=== PATIENT | female | born 1990 | race Caucasian/White ===

== ENCOUNTER → 2020-08-05 04:53 | Outpatient (CLI) | payer OTHER, SELFPAY ==
[2020-08-05 19:22] LABS: SARS-CoV-2 RNA PCR Negative
== END ==
PROVIDERS: Visit Provider Obstetrics & Gynecology
DX: Z01.812 Encounter for preprocedural laboratory examination (principal); Z20.822 Contact with and (suspected) exposure to COVID-19
CPT/HCPCS: C9803; U0003; U0005

== ENCOUNTER 2020-08-08 00:43 | Day surgery (SDC) | payer OTHER, SELFPAY ==
[2020-07-27 08:59] VITALS: BMI 27.2
[2020-08-08] VITALS (8 sets, daily range): BP systolic 114–157; BP diastolic 78–99; PULSE 48–93; RESP 10–16; TEMP 36.6–37; O2SAT 98–100
--- NOTE | 2020-08-08 08:36 | PM.IMHP ---
H&P: HPI History of Present Illness Date/Time: 08/08/20 08:36 30 y/o coming in for sterilization Chief Complaint: Desires sterilization Review of Systems Review of Systems: All systems reviewed & are unremarkable except as noted in HPI and below PMFSH Past Medical History Medical History Vaginal delivery x4 Family History Family History Mother Tuberculosis Social History Social History (Updated 07/01/20 @ 11:15 by Jana Hernandez CMA) Smoking status: Never smoker Alcohol intake: never Substance use: never Living arrangements: with family Meds Home Medications and Allergies Home Medications Medication Instructions Recorded Confirmed Type ibuprofen 200 mg tablet 200 mg PO Q6H PRN 07/01/20 History multivitamin 1 tablet PO DAILY 07/01/20 History norethindrone (contraceptive) 0.35 0.35 mg PO DAILY 07/01/20 History mg tablet Allergies Allergy/AdvReac Type Severity Reaction Status Date / Time No Known Allergies Allergy Verified 07/01/20 11:04 Exam Const: General: healthy appearing, no acute distress, well developed, alert and awake Resp: Auscultation: clear to auscultation bilaterally Cardio: Rate: regular rate Rhythm: regular rhythm GI: Inspection: non-distended GI Palp: Yes Soft to palpation and No Tenderness to palpation present (GI) : Bimanual exam- vagina & uterus: normal bimanual exam, uterine size normal, uterine mobility normal, non-tender and soft Bimanual Exam- Adnexa, other: normal adnexae, no masses and No adnexal tenderness Extrem: General: no pedal edema and no calf tenderness Psych: Mental Status: mental status grossly normal Assessment and Plan Assessment and plan (1) Encounter for sterilization: Code(s): Z30.2 - Encounter for sterilization Status: Acute Assessment and Plan: She signed consent after risks, benefits, complications, and alternatives discussed for L/S BTL with Armand lennon. She expressed understanding and wishes to proceed.
[2020-08-08] MEDS: ACETAMINOPHEN 500 MG TABLET 1000 MG PO (10:18)
[2020-08-08] MEDS: LACTATED RINGERS 1,000 ML 30 ML IV CONT ×2 (10:24→13:02)
[2020-08-08] MEDS: KETOROLAC 15 MG/ML VIAL (*BKC) IV PUSH (10:24)
--- NOTE | 2020-08-08 11:12 | WPDANESEPPF ---
Anes - Initial Pre Proc Eval Procedure: Operation Date: 08/08/20 12:00 Proposed Procedures p Laparoscopic Bilateral Tubal Sterilization With Filshie Clips - Margaret Patel MD Date/Time: 08/08/20 11:12 Surgeon: Margaret Patel MD Pre Op Diagnosis: Desires Sterilization Patient Data Age: 30 Gender: F Height: 5 ft 4 in Weight: 70.85 kg Last Vital Signs Temp 37.0 C 08/08/20 09:55 Pulse 93 08/08/20 09:55 Resp 16 08/08/20 09:55 BP 114/85 08/08/20 09:55 Pulse Ox 100 08/08/20 09:55 Allergies Allergy/AdvReac Type Severity Reaction Status Date / Time No Known Allergies Allergy Verified 08/08/20 10:15 Home Medications Medication Instructions Recorded Confirmed Type ibuprofen 200 mg tablet 200 mg PO Q6H PRN 07/01/20 08/08/20 History multivitamin 1 tablet PO DAILY 07/01/20 08/08/20 History norethindrone (contraceptive) 0.35 0.35 mg PO DAILY 07/01/20 08/08/20 History mg tablet Patient hx anesthesia problems: none Family hx anesthesia problems: none PMFSH Past Medical History Medical History Eczema Overweight (BMI 25.0-29.9) Vaginal delivery x4 Family History Family History Mother Tuberculosis Social History Social History Smoking status: Never smoker Alcohol intake: never Substance use: never Living arrangements: with family Anes - Eval Final PreProcedure Day of Procedure 08/08/20 11:12 Patient weight: overweight Heart: regular rate and rhythm Lungs: clear to auscultation Airway: Mallampati scale class II Neurological: alert and oriented Last oral intake: >/= 8 hours ASA classification: II Emergent: no Anesthetic plan: proceed Anesthesia type and monitoring: general ETT and standard monitoring Informed Consent: The patient's anesthetic plan and its attendant risks and benefits were discussed with the patient/family/POA. Questions were solicited and answers provided to the satisfaction of the patient/family/POA.
--- NOTE | 2020-08-08 11:54 | WPDHPUPDATE1 ---
History and Physical Update Update Date/Time: 08/08/20 11:54 History and Physical has been reviewed, including an updated exam of the patient. There are NO changes in the patient's condition. Risks, benefits, and alternatives have been discussed and questions answered. Patient agrees to proceed with procedure.
[2020-08-08] MEDS: BUPIVACAINE/EPINEPHRINE 0.5% 30 ML VIAL 10 ML INFILTRATE (12:00)
[2020-08-08] MEDS: KETOROLAC 30 MG/ML VIAL (*BKC) IV PUSH (12:00)
--- NOTE | 2020-08-08 12:43 | P.OP_ITS ---
Procedure Note - Detailed Date of procedure: 08/08/20 Pre-op diagnosis: Desires Sterilization Post-op diagnosis: same Procedure performed: L/S BTL with Filshie clips Description of procedure: She was taken to the operating room where general a nesthesia was obtained. She was prepared and draped in the normal sterile fashion in the dorsal lithotomy position. Marcaine was injected infraumbilically. A 5 mm skin incision was made in the infraumbilical fold with a scalpel. A 5 mm non bladed trocar was placed with the camera in the trocar under direct visualization into the peritoneal cavity. Insufflation was begun. She was placed in Trendelenburg. Marcaine was then injected in the midline suprapubic area. An 8 mm skin incision was made in the suprapubic area. An 8 mm trocar was then placed suprapubically under direct visualization. Inspection of the pelvis revealed the findings as noted above. A Filshie clip was placed on the mid isthmic portion of the left fallopian tube, making sure the entire circumference of the tube was contained in the clip. The same procedure was performed on the right fallopian tube. All operative sites were inspected and found to be hemostatic. The pneumoperitoneum was allowed to escape. Both trocars were removed. There was a small bleeding point subcutaneously at the infraumbilical incision. This was easily controlled using cautery. Both skin incisions were then closed using 4 0 Monocryl in subcuticular fashion. She tolerated the procedure well. Sponge, lap, needle, and instrument counts were correct x2. She was taken to the recovery room in stable condition. Anesthesia: GETA Surgeon: Margaret Patel MD Estimated blood loss (mL): 10 Drains: No Packing: No Pathology: none sent Complications: No immediate complications Condition: stable Disposition: PACU Findings: Normal uterus, tubes, ovaries, liver, gall bladder, appendix
[2020-08-08] MEDS: fentaNYL CITRATE INJ (*CRX) 100 MCG/2 ML VIAL 25 MCG IV PUSH ×3 (13:06→13:30)
[2020-08-08] MEDS: oxyCODONE HCL (*CRX) 5 MG TAB IR PO (14:02)
[2020-08-08] MEDS: ONDANSETRON INJ 4 MG/2 ML VIAL IV PUSH (14:02)
== END 2020-08-08 14:56 | disposition home or self-care (01) ==
PROVIDERS: Visit Provider Obstetrics & Gynecology
PROC: (CPT 58671; principal; 2020-08-08 12:00)
DX: Z30.2 Encounter for sterilization (principal)
CPT/HCPCS: 58671; A9270; J0330; J1100; J1885; J2250; J2405; J2704; J3010; J7120

== ENCOUNTER 2021-04-10 09:28 | Emergency (ER) | payer OTHER, SELFPAY ==
[2021-04-10] VITALS (13 sets, daily range): BP systolic 100–143; BP diastolic 67–96; PULSE 62–86; RESP 13–18; TEMP 36.9; O2SAT 98–100
--- NOTE | ~2021-04-10 | XR_ITS ---
EXAMINATION: XR chest 2V DATE: 04/10/2021 14:01 INDICATION: Dizziness and vomiting TECHNIQUE: Frontal and lateral views of the chest are obtained COMPARISON: None available FINDINGS: The lungs are free of acute opacities. There is no pleural effusion or pneumothorax. The ca rdiomediastinal silhouette is normal. The visualized bones and soft tissues are unremarkable. IMPRESSION: 1. No acute cardiopulmonary abnormality. Reviewed, dictated and finalized at location A. [facility]
--- NOTE | 2021-04-10 13:42 | ECG_ITS ---
Measurements Intervals [place] Rate: 82 P: 37 WA: 155 QRS: 3 QRSD: 89 T: 5 QT: 381 QTc: 446 Interpretive Statements SINUS RHYTHM EARLY PRECORDIAL R/S TRANSITION VOLTAGE CRITERIA FOR LVH BORDERLINE T WAVE ABNORMALITY- INFERIOR LEADS BORDERLINE ECG Electronically Signed On 04-10-2021 15:04:13 [employer] by Henry Gomes D.O.
--- NOTE | 2021-04-10 14:07 | ED.DIZZY ---
HPI - Dizziness General Chief Complaint: Abdominal Pain Stated Complaint: vomiting Time Seen by Provider: 04/10/21 13:42 Source: patient Mode of arrival: ambulatory Limitations: no limitations History of Present Illness HPI Narrative: This is a 30-year-old female that presents to the emergency department for dizziness since yesterday. Reports room spinning dizziness and also lightheadedness. Reports this is associated with nausea and vomiting. Does report history of vertigo. Denies fever, chest pain, shortness of breath, or abdominal pain. Related Data Home Medications Medication Instructions Recorded Confirmed multivitamin 1 tablet PO DAILY 07/01/20 08/08/20 Allergies Allergy/AdvReac Type Severity Reaction Status Date / Time No Known Allergies Allergy Verified 08/15/20 08:41 Review of Systems Review of Systems: CONSTITUTIONAL: Denies fever EYES: Denies visual changes CARDIOVASCULAR: Denies chest pain, or edema. RESPIRATORY: Denies dyspnea. GASTROINTESTINAL: Reports nausea and vomiting. Denies abdominal pain NEUROLOGIC: Denies numbness, or weakness. All systems reviewed & are unremarkable except as noted in HPI and below PMFSH Past Medical History Medical History Eczema Overweight (BMI 25.0-29.9) Vaginal delivery x4 Surgical History Surgical History S/P tubal ligation Family History Family History Mother Tuberculosis Social History Social History Smoking status: Never smoker Alcohol intake: never Substance use: never Exam Narrative: GENERAL: Well-appearing, well-nourished, and in no acute distress. HEAD: Normocephalic, atraumatic. EYES: PERRLA and EOMI. ENT: Nares clear, no rhinorrhea or epistaxis. Mucous membranes moist. Oropharynx without tonsillar hypertrophy exudate or other lesions. Bilateral TMs pearly morton non-bulging NECK: Supple. No adenopathy or masses. CHEST: Clear to auscultation. No respiratory distress. No wheezes rales or rhonchi HEART: Regular rate and rhythm. No murmur heard. Normal peripheral pulses. ABDOMEN: Soft, nontender, nondistended, normal active bowel sounds. EXTREMITIES: Normal range of motion. No edema. SKIN: Warm, dry, no rash. NEURO: No focal deficits. Alert and oriented x3. Cranial nerves II through XII grossly intact PSYCH: Normal mood and affect Course Vital Signs Vital signs: Vital Signs Temperature 98.4 F 04/10/21 09:47 Pulse Rate 81 04/10/21 09:47 Respiratory Rate 16 04/10/21 09:47 Blood Pressure 143/96 H 04/10/21 09:47 Pulse Oximetry 99 04/10/21 09:47 Temperature 98.4 F 04/10/21 09:47 Pulse Rate 62 04/10/21 17:15 Respiratory Rate 18 04/10/21 17:15 Blood Pressure 134/79 04/10/21 17:15 Pulse Oximetry 100 04/10/21 17:15 MDM - Dizziness MDM Narrative Medical decision making narrative: Patient presents emergency department for dizziness present since yesterday. Associated with nausea and vomiting. Patient is afebrile nontoxic-appearing. Her vitals are stable. CBC and metabolic panel without concerning findings. UA with greater than 75 white blood cells and 2+ leuk esterase. Could be a contaminated catch. This will be sent for culture. Patient will be presumptively started on antibiotics. Bedside test is negative. Chest x-ray without acute cardiopulmonary abnormality. EKG without concerning changes. She denies any chest pain or shortness of breath. Patient was updated on case findings. Hydrated and given dose of Zofran and meclizine with relief. Reports she is feeling better and would like to go home. She is stable and felt appropriate for further outpatient evaluation. She is to follow-up with her primary care doctor. She was given warnings
[2021-04-10] MEDS: ONDANSETRON INJ 4 MG/2 ML VIAL IV PUSH (14:27)
[2021-04-10] MEDS: MECLIZINE HCL 25 MG TABLET PO (14:28)
[2021-04-10] MEDS: SODIUM CHLORIDE 0.9% IV 1,000 ML 999 ML IV CONT (14:28)
[2021-04-10 14:37] LABS: Basophils Percent Auto 0.1 % (0.2-1.2); Hematocrit 40.5 % (37.0-47.0); Hemoglobin 13.5 g/dL (12.0-15.0); Immature Granulocyte Absolute 0.02 K/mm3 (0.00-0.031); Immature Granulocyte Percent A 0.2 % (0-0.5); Lymphocytes Absolute Auto 0.94 K/mm3 (0.9-3.2); Lymphocytes Percent Auto 9.6 % (18.3-44.2); Mean Corpuscular HGB Conc 33.3 g/dl (32-36); Mean Platelet Volume 10.8 fl (7.4-10.4); Monocytes Absolute Auto 0.2 K/mm3 (0.1-0.6); Monocytes Percent Auto 1.9 % (2.6-8.5); Neutrophils Absolute Auto 8.7 K/mm3 (1.3-6.7); Neutrophils Percent Auto 88.2 % (45.5-73.1); Platelet Count Result 323 k/mm3 (150-375); Red Cell Distribution Width 12.5 % (11.5-14.5); White Blood Count 9.8 K/mm3 (4.5-10.0)
[2021-04-10 14:47] LABS: Alanine Aminotransferase 16 U/L (4-35); Albumin Level 4.8 g/dL (3.5-5.1); Alkaline Phosphatase 68 U/L (38-126); Anion Gap 12 mmol/L (8-16); Aspartate Amino Transferase 27 U/L (14-36); Bilirubin,Total 0.4 mg/dL (0.2-1.3); Blood Urea Nitrogen 16 mg/dL (7-17); Calcium 9.3 mg/dL (8.4-10.2); Carbon Dioxide 23 mmol/L (22-30); Chloride 104 mmol/L (98-107); Estimated CRCL calculation 133 ml/min; Estimated Glomerular Filt Rate > 60; Glucose 124 mg/dL (65-110); Lipase 38 U/L (23-300); Potassium 4.2 mmol/L (3.4-5.0); Sodium 139 mmol/L (137-145)
[2021-04-10 16:28] LABS: Add Urine Microscopic? YES; Appearance Urine Cloudy (Clear); Bacteria Urine Trace /hpf; Bilirubin Urine Negative (Negative); Color Urine Yellow (Yellow); Glucose Urine UA Negative (Negative); Ketones Urine 2+ mg/dL (Negative); Leukocyte Esterase Ur 2+ LEU/UL (Negative); Mucus Urine Moderate /lpf; Nitrate Urine Negative (Negative); Protein Urine 1+ mg/dL (Negative); Specific Grav Ur 1.026 (1.001-1.035); Squamous Epithelial Cell Urine Many /hpf (Few); Urobilinogen Urine Negative mg/dL (<2.0); WBC Urine >75 /hpf
[2021-04-10 16:42] LABS: Blood Urine Negative (Negative)
== END 2021-04-10 17:55 | disposition home or self-care (01) ==
PROVIDERS: Physician Assistant; Emergency Provider Emergency Medicine; PCP Nurse Practitioner Adult Health
DX: R42 Dizziness and giddiness (principal); Z68.27 Body mass index [BMI] 27.0-27.9, adult; E66.3 Overweight; N30.00 Acute cystitis without hematuria
CPT/HCPCS: 36415; 71046; 80053; 81001; 81025; 83690; 85025; 87077; 87086; 87088; 87186; 93005; 96361; 96374; 99284; A9270; J2405; J7030

== ENCOUNTER → 2021-04-27 03:00 | Outpatient (CLI) | payer OTHER, SELFPAY ==
[2021-04-27 19:47] LABS: SARS-CoV-2 RNA PCR Negative
== END ==
PROVIDERS: PCP Nurse Practitioner Adult Health; Visit Provider Nurse Practitioner Adult Health
DX: J01.90 Acute sinusitis, unspecified (principal); Z20.822 Contact with and (suspected) exposure to COVID-19
CPT/HCPCS: C9803; U0003; U0005